=== PATIENT | female | born 1985 | race Two or more races ===

== ENCOUNTER 2019-05-30 03:11 | Emergency (ER) | payer OTHER ==
[~2019-05-30] VITALS: Ht 157.5 cm; Wt 52.2 kg
[2019-05-30 03:05] VITALS: BP 110/68
--- NOTE | 2019-05-30 03:05 | NUR ---
ED Nurse Note: pt brought in by [facility] R[facility] from a hotel in [place] c/c ETOH intoxication and vomiting. noted pt having dry heaves, no sx distress, airway intact, will cont monitor.
--- NOTE | 2019-05-30 03:32 | Emergency Room Report ---
History of Present Illness General Chief Complaint: Alcohol Intoxication Source: Patient, EMS Present Illness HPI This a 31-year-old female came in by EMS with chief plan of alcohol intoxication and nausea and vomiting. She was at a [employer] and was drinking. She began to vomit and her friend got concerned and called 911. Patient complained of dizziness and vomiting and nauseousness. Denies any trauma. He denies any drug use. Denies suicidal thoughts homicidal thought. No other complaint. Vomiting is nonbloody and nonbilious. Allergies: Coded Allergies: No Known Allergies (Unverified , 05/30/19) Patient History Past Medical History: see triage record, old chart reviewed Past Surgical History: none Pertinent Family History: none Social History: Reports: alcohol use Now: No Immunizations: other Reviewed Nursing Documentation: PMH: Agreed; PSxH: Agreed Nursing Documentation-PMH Past Medical History: No Stated History Review of Systems Eye: Denies: eye pain, blurred vision ENT: Denies: ear pain, nose congestion, throat swelling Respiratory: Denies: cough, shortness of breath Cardiovascular: Denies: chest pain, palpitations Gastrointestinal: Reports: nausea, vomiting; Denies: abdominal pain, diarrhea Musculoskeletal: Denies: back pain, joint pain Skin: Denies: rash Neurological: Denies: headache, numbness Endocrine: Denies: increased thirst, increased urine Hematologic/Lymphatic: Denies: easy bruising All Other Systems: negative except mentioned in HPI Physical Exam Vital Signs Date Time Temp Pulse Resp B/P (MAP) Pulse Ox O2 Delivery O2 Flow Rate FiO2 05/30/19 03:01 98.8 100 16 110/68 (82) 100 Room Air Vitals normal Sp02 EP Interpretation: reviewed, normal General Appearance: well appearing, no apparent distress, alert, other - Intoxicated Head: normocephalic, atraumatic Eyes: bilateral eye PERRL, bilateral eye EOMI ENT: hearing grossly normal, normal pharynx Neck: full range of motion, supple, no meningismus Respiratory: chest non-tender, lungs clear, normal breath sounds Cardiovascular #1: regular rate, rhythm, no murmur Gastrointestinal: normal bowel sounds, non tender, no mass, no organomegaly, no bruit, non-distended Musculoskeletal: back normal, normal range of motion Psychiatric: mood/affect normal Medical Decision Making Diagnostic Impression: Primary Impression: Acute alcoholic intoxication Qualified Codes: F10.920 - Alcohol use, unspecified with intoxication, uncomplicated ER Course Presents with nausea and vomiting from alcohol intoxication. Better now. Will discharge home when she is ready to ambulate. Will discharge home with her friend afterward. Last Vital Signs Date Time Temp Pulse Resp B/P (MAP) Pulse Ox O2 Delivery O2 Flow Rate FiO2 05/30/19 03:05 98.8 100 16 110/68 100 Room Air Status: improved Disposition: HOME, SELF-CARE Condition: Stable Patient Instructions: Alcohol Intoxication, [id number] Additional Instructions: Abstain from drinking to excess. Follow-up with your doctor in 7 days. Return if worse. Hudson Frazier MD May 30, 2019 03:32
--- NOTE | 2019-05-30 04:00 | NUR ---
HAND-OFF: Report given to GINA Hernandez.
[2019-05-30 06:01] VITALS: BP 110/68
--- NOTE | 2019-05-30 06:01 | NUR ---
ED Nurse Note: Patient cleared for discharge by ERMLetha. Patient is awake, alert and oriented x4 and ambulatory with steady gait. Patient plans to jr liu to be taken to her friend's house. Patient's IV was removed, ID band removed. APtient verbalized understanding of discharge instructions. Patient departed with all belongings.
== END 2019-05-30 06:07 | disposition home or self-care (01) ==
LOC: EDBD 03:11 → EMR 03:21
DX: F10.129 Alcohol abuse with intoxication, unspecified (principal)
CPT/HCPCS: 96374; J2405; Z7502; 99284